=== PATIENT | female | born 2000 | race African-American/Black ===

== ENCOUNTER 2021-11-16 19:50 | Emergency (ER) | payer SELFPAY ==
[~2021-11-16] VITALS: Ht 162.6 cm; Wt 64.0 kg
[2021-11-16 19:52] VITALS: BP 119/67
[2021-11-16] MEDS ORDERED: NEOM28.37 TP (20:50)
[2021-11-16] MEDS ORDERED: BACITRACIN ZINC OINT UDPKT TOP ONE (21:00)
== END 2021-11-16 21:11 | disposition home or self-care (01) ==
LOC: ER 19:50
DX: T21.25XA Burn of second degree of buttock, initial encounter (principal); T31.0 Burns involving less than 10% of body surface; T79.9XXA Unspecified early complication of trauma, initial encounter; X08.8XXA Exposure to other specified smoke, fire and flames, initial encounter; Y93.89 Activity, other specified; Y92.89 Other specified places as the place of occurrence of the external cause; Y99.8 Other external cause status
CPT/HCPCS: 99282